=== PATIENT | male | born 1970 | race Caucasian/White ===

== ENCOUNTER 2016-12-08 16:36 | Inpatient (IN) | payer BC ==
[2016-12-08] MEDS ORDERED: NS 0.9% 1000 ML* 1,000 ML IV ONE (16:45)
[2016-12-08] MEDS ORDERED: Morphine INJ* 4 MG/ML 1 ML SYRINGE IV ONE (16:45)
[2016-12-08] MEDS ORDERED: Ondansetron INJ* 2 MG/ML VIAL IV ONE (16:45)
[2016-12-08 16:50] LABS: Hematocrit 47 % (42-52); Mean Corpuscular HGB Conc 34 g/dl (31-36); Mean Corpuscular Hemoglobin 30 pg (27-31); Mean Corpuscular Volume 88 fL (80-94); Mean Platelet Volume 8 um3 (7.4-10.4); Red Blood Count 5.36 10^6/ul (4.0-5.4); Red Cell Distribution Width 13 % (10.5-15); White Blood Count 10.5 10^3/ul (3.5-10.8)
[2016-12-08] MEDS ORDERED: HYDROmorphone* 1 MG/ML 1 ML SYR IV SLOW PU ONE ×2 (17:04→17:45)
[2016-12-08 17:06] LABS: Albumin 4.6 g/dL (3.2-5.2); BUN/Creatinine Ratio 14.3 (8-20); Calcium 9.8 mg/dL (8.6-10.3); EGFR African American 62.6 (>60); EGFR Non-African American 48.7 (>60); Potassium 4.4 mmol/L (3.5-5.0); Total Bilirubin 0.7 mg/dL (0.2-1.0); Total Protein 7.6 g/dL (6.4-8.9)
[2016-12-08 17:08] LABS: Troponin I 0.03 ng/mL (<0.04)
[2016-12-08] MEDS ORDERED: Iodixanol* (CONTRAST) 320 MG/ML 100 ML SDV IV ONE (17:20)
--- NOTE | 2016-12-08 17:25 | RAD ---
Indication: Chest pain. Single frontal view of the chest performed at 1650 hours was reviewed. No prior study.. No mediastinal shift is noted. Heart is of normal size and configuration. Lung womack appear clear. IMPRESSION: NO ACTIVE CARDIOPULMONARY DISEASE IS NOTED.
[2016-12-08] MEDS ORDERED: LORazepam INJ* 2 MG/ML 1 ML VIAL IV PUSH ONE (17:46)
--- NOTE | 2016-12-08 18:01 | RAD ---
Indication: Severe back pain and chest pain. Contrast: Administered 100.0 ml of VISAPAQUE 320 mg/ml CTA of the chest, abdomen and pelvis was performed after IV contrast administration. Coronal and sagittal reconstructed images were obtained. The aorta is well opacified. There is no evidence of aortic dissection. No evidence of aneurysmal dilatation is noted. The heart demonstrates no pericardial effusion. The pulmonary arterial tree demonstrates no evidence of definite filling defects present. There is no mediastinal or hilar adenopathy noted. The brachial and major bronchi appear patent. The lung womack demonstrate dependent changes however no alveolar consolidation or nodules are identified. The thoracic spine demonstrates no evidence of fracture. The remainder of the bony structures are also unremarkable. CTA of the abdomen and pelvis demonstrates abdominal aorta to be normal caliber. The abdominal aorta, celiac axis, superior mesenteric artery are unremarkable. The common iliac artery, external iliac artery and common femoral arteries are unremarkable. The urinary bladder is unremarkable. No dilated loops of bowel are noted. The colon is filled with stool. The appendix is visualized and is normal. No dilated loops of bowel are noted. No free fluid is identified. IMPRESSION: No evidence of aortic dissection or aneurysmal dilatation of the thoracic or abdominal aorta. No solid organ injury is noted. No evidence of pneumonia is identified
[2016-12-08] MEDS ORDERED: Heparin for STEMI(*) 5,000 UNITS/ML 1 ML VIAL IV ONE (18:16)
[2016-12-08] MEDS ORDERED: Heparin DRIP 25,000 UNITS(*) 25,000 UNITS/500 ML BAG IV SCH (18:45)
[2016-12-08] MEDS ORDERED: Diazepam TAB(*) 5 MG PO ONE (18:50)
[2016-12-08] MEDS ORDERED: diPHENhydraMINE PO* 25 MG PO ONE (18:50)
[2016-12-08] MEDS ORDERED: Heparin DRIP 25,000 UNITS(*) 25,000 UNITS/500 ML BAG ONE (18:51)
--- NOTE | 2016-12-08 18:55 | ED ---
Coleen Almeida Rebecca, scribed for Deysi Coffey MD on 12/08/16 at 1654 . HPI Chest Pain - HPI Summary HPI Summary: Pt is a 46 y/o M BIBA who presents to ED c/o sudden onset CP. Sx began at 1530 after a bicycle ride, beginning in the mid-back and radiating forward. Pain has been constant since onset and is currently severe, ranked 9/10. He was given 325 mg ASA and 2 NTG SECURITY SYSTEMS ADMINISTRATOR by EMS. Sx aggravated by nothing, alleviated slightly by NTG. Additionally c/o diaphoresis possibly secondary to bike ride. PMHx DC with 2 stents, 9 years ago - current pain is similar to when he had has DC. Last saw a digital imaging technician and had a stress test 2 years ago. Is not on blood thinners. - History of Current Complaint Chief Complaint: EDChestPainROMI Hx Obtained From: Patient Onset/Duration: Started Hours Ago, Still Present Time of Onset: 15:30 Timing: Constant Current Severity: Severe Pain Intensity: 9 Pain Scale Used: 0-10 Numeric Chest Pain Location: Mid Sternal Chest Pain Radiates: Yes Chest Pain Radiates To:: Back Aggravating Factor(s): Nothing Alleviating Factor(s): NTG 123 Associated Signs and Symptoms: Positive: Diaphoresis - Allergy/Home Medications Allergies/Adverse Reactions: Allergies Allergy/AdvReac Type Severity Reaction Status Date / Time No Known Allergies Allergy Verified 12/08/16 16:53 PMH/Surg Hx/FS Hx/Imm Hx Endocrine/Hematology History: Denies: Hx Diabetes Cardiovascular History: Reports: Hx Myocardial Infarction Denies: Hx Hypertension - Surgical History Surgery Procedure, Year, and Place: 2 cardiac stents - [place] 2007 Infectious Disease History: No Infectious Disease History: Denies: Traveled Outside the [place] in Last 30 Days - Family History Known Family History: Positive: Cardiac Disease - Social History Alcohol Use: Occasionally Substance Use Type: Reports: None Smoking Status (MU): Never Smoked Tobacco Review of Systems Positive: Skin Diaphoresis. Negative: Fever Positive: Chest Pain All Other Systems Reviewed And Are Negative: Yes Physical Exam - Summary Physical Exam Summary: General: Mildly ill appearing in moderate distress Skin: Warm, Skin Color Reflects Adequate Perfusion, diaphoretic Eyes: EOMI, CLARA ENT: Pharynx normal, TMs normal Neck: Supple, nontender Respiratory: CTA, breath sounds present, no rhonchi, no wheezes, no rales Cardiovascular: RRR, no murmur, no rub, no gallop Abdomen: Soft, nontender, Non-distended, no guarding, no rebound Bowel: Present Musculoskeletal: VANESA, No edema Neuro: Sensory/motor intact, A&Ox3, CN intact 2-12 Psych: Affect/mood appropriate Triage Information Reviewed: Yes Vital Signs On Initial Exam: Initial Vitals Temp Pulse Resp BP Pulse Ox 97.2 F 65 22 128/88 98 12/08/16 16:41 12/08/16 16:41 12/08/16 16:41 12/08/16 16:41 12/08/16 16:41 Vital Signs Reviewed: Yes - [place] Coma Scale Coma Scale Total: 15 Diagnostics - Vital Signs Vital Signs Temp Pulse Resp BP Pulse Ox 12/08/16 16:41 97.2 F 66 22 128/88 98 - Laboratory Lab Results: Lab Results 12/08/16 12/08/16 12/08/16 Range/Units 16:43 16:43 16:43 WBC 10.5 (3.5-10.8) 10^3/ul RBC 5.36 (4.0-5.4) 10^6/ul Hgb 16.0 (14.0-18.0) g/dl Hct 47 (42-52) % MCV 88 (80-94) fL MCH 30 (27-31) pg MCHC 34 (31-36) g/dl RDW 13 (10.5-15) % Plt Count 223 (150-450) 10^3/ul MPV 8 (7.4-10.4) um3 Neut % (Auto) 72.8 (38-83) % Lymph % (Auto) 17.6 L (25-47) % Wake % (Auto) 7.0 (1-9) % Eos % (Auto) 0.5 (0-6) % Baso % (Auto) 2.1 H (0-2) % Absolute Neuts (auto) 7.7 (1.5-7.7) 10^3/ul Absolute Lymphs (auto) 1.9 (1.0-4.8) 10^3/ul Absolute Monos (auto) 0.7 (0-0.8) 10^3/ul Absolute Eos (auto) 0.1 (0-0.6) 10^3/ul Absolute Basos (auto) 0.2 (0-0.2) 10^3/ul Absolute Nucleated RBC 0 10^3/ul Nucleated RBC % 0 Sodium 136 (133-145) mmol/L Potassium 4.4 (3.5-5.0) mmol/L Chloride 104 (101-111) mmol/L Carbon Dioxide 23 (22-32) mmol/L Anion Gap 9 (2-11) mmol/L BUN 22 (6-24) mg/dL Creatinine 1.54 H (0.67-1.17) mg/dL Est GFR ( Amer) 62.6 (>60) Est GFR (Non-Af Amer) 48.7 (>60) BUN/Creatinine Ratio 14.3 (8-20) Glucose 167 H (70-100) mg/dL Lactic Acid 1.8 (0.5-2.0) mmol/L Calcium 9.8 (8.6-10.3) mg/dL Total Bilirubin 0.70 (0.2-1.0) mg/dL AST 18 (13-39) U/L ALT 20 (7-52) U/L Alkaline Phosphatase 57 (34-104) U/L Troponin I 0.03 (<0.04) ng/mL Total Protein 7.6 (6.4-8.9) g/dL Albumin 4.6 (3.2-5.2) g/dL Globulin 3.0 (2-4) g/dL Albumin/Globulin Ratio 1.5 (1-3) Result Diagrams: 12/08/16 16:43 12/08/16 16:43 Lab Statement: Any lab studies that have been ordered have been reviewed, and results considered in the medical decision making process. - Radiology CXR Xray Interpretation: No Acute Changes - NO ACTIVE CARDIOPULMONARY DISEASE IS NOTED. Radiology Interpretation Completed By: Radiologist - CT CTA Chest/Abd/Pel CT CT Interpretation: No Acute Changes - No evidence of aortic dissection or aneurysmal dilatation of the thoracic or abdominal aorta. No solid organ injury is noted. No evidence of pneumonia is identified CT Interpretation Completed By: Radiologist - EKG 1640 Cardiac Rate: NL - 61 bpm EKG Rhythm: Sinus Rhythm EKG Interpretation: Inferior Q waves with T wave inversions, peaked T waves 1643 Cardiac Rate: NL - 63 bpm EKG Rhythm: Sinus Rhythm EKG Interpretation: Inferior Q waves with T wave inversions, peaked T waves EKG Comparison: No Significant Change - From EKG on this date at 1640 1803 Cardiac Rate: NL - 60 bpm EKG Rhythm: Sinus Rhythm EKG Comparison: Other - Lead I and aVL have changed in morphology to show slight elevation as compared with EKGs done earlier today Re-Evaluation - Re-Evaluation First Eval Re-Evaluation Time: 16:56 Change: Unchanged Comment: Pt continues to be in pain. Second Eval Re-Evaluation Time: 18:13 Change: Improved Comment: After pain medications, pt is more comfortable but continues to experience pain, currently 11/05. I have decided to start him on a Heparin drip. Chest Pain Course/Dx - Course Course Of Treatment: 46 yo male hx DC two stents 10 years ago not on meds now and denies htn, fam hx, or chol, here with onset of severe back pain radiating to chest. First ekg non-diagnostic with inf q's and deep twave inversions. Pain was hard to control with 4mg of morphine, 1mg of dilaudid and 0.5 mg ativan. He did receive asa and nitro by ambulance, pt was sent for a cta chest/abd/pelvis to rule out dissection with on going chest pain at a 6 but definitely more comfortable then he arrived. First trop was 0.3 and 2nd ekg showed a slight change in morphology of leads 1 and aVL questionable mild elevation. Dr. Hernandez called 4000 units of heparin loaded, pt now receiving infusion of heparin and Dr. Hernandez has called in cath team to take pt to the general labor forklift operator. Pt's here for the course of his treatment and has been made aware of all treatments - Diagnoses Provider Diagnoses: Unstable angina - Provider Notifications Discussed Care Of Patient With: Santi Hernandez Time Discussed With Above Provider: 18:16 Instructed by Provider To: Other - Now that the pt's CTA has been read as negative, he will evaluate the pt in the ED and posibly take him to the general labor forklift operator. - Critical Care Time Critical Care Time: 30-74 min - 30 minutes Discharge - Discharge Plan Condition: Guarded Disposition: ADMITTED TO [facility] documentation as recorded by the Coleen joseph Rebecca accurately reflects the service I personally performed and the decisions made by me, Deysi Coffey MD.
[2016-12-08] MEDS ORDERED: Heparin VIAL(*) 5000 UNITS/ML VIAL (FIVE THOUSAND) IV SCH (19:00)
[2016-12-08] MEDS ORDERED: NS 0.9% 1000 ML* 1,000 ML IV SCH ×2 (19:00→23:00)
[2016-12-08] MEDS ORDERED: Iodixanol* (CONTRAST) 320 MG/ML 100 ML SDV ONE ×2 (19:09→21:34)
[2016-12-08] MEDS ORDERED: VERAPAMIL 2.5 MG/ML 4 ML VIAL ONE (19:30)
[2016-12-08] MEDS ORDERED: nitroGLYCERIN DRIP* 250 ML ONE (19:30)
[2016-12-08] MEDS ORDERED: Heparin(*) 1000 UNIT/ML 10 ML VIAL CATH LAB IV ONE ×2 (19:30→21:32)
[2016-12-08] MEDS ORDERED: Eptifibatide IV (Load dose)(*) 2 MG/ML 10 ml VIAL ONE (20:07)
[2016-12-08] MEDS ORDERED: Ticagrelor* 90 MG TAB PO ONE (20:10)
--- NOTE | 2016-12-08 21:21 | HP ---
HISTORY AND PHYSICAL: DATE OF ADMISSION: 12/08/16 INDICATION FOR ADMISSION: Acute coronary syndrome. HISTORY OF PRESENT ILLNESS: The patient is a 46-year-old gentleman with a history of coronary arter y disease, history of stenting to his PDA back in 2007. The patient does not follow with the physic darren or marine meteorologist. The patient states that he went out for a bike ride today, felt well during hi s bike ride, but then when he got home, he started having anginal-type chest pain, radiating from th e back to the front. He rated it as a 7/10. He was diaphoretic and nauseous with it. His pain did not radiate anywhere. He called the ambulance. On arrival of the ambulance, they gave him 3 subli ngual nitroglycerin and 325 aspirin. The nitroglycerin did decrease his pain, but did not completel y eliminate it. In the emergency room, the patient had an EKG which demonstrated normal sinus rhyth m with deep T-wave inversions in the inferior leads with ST-segment depressions in V2, V3; ST-segmen t elevations in I and aVL. The patient was given heparin IV, morphine IV, and anxiolytic. Despite that, the patient continued to have chest pain. The patient did go for a CT of the chest to rule ou t dissection. There was no evidence of dissection. On my arrival, the patient continued to be diap horetic, had 3/10 chest pain radiating from the back to the front, and was slightly nauseous. PAST MEDICAL HISTORY: Nothing except for the coronary artery disease. PAST SURGICAL HISTORY: None except for cardiac catheterization. MEDICATIONS: He is currently not taking any medications. ALLERGIES: None. FAMILY HISTORY: Father had a history of early coronary artery disease. Mother has no ongoing medic al problems. REVIEW OF SYSTEMS: Negative for fevers or chills. Negative for change in the bowel or bladder habi ts. Negative for change for weight. All other 12-point review was unremarkable. PHYSICAL EXAMINATION VITAL SIGNS: Height is 5 feet 11 inches, weight 215 pounds. Temperature 97.2, heart rate is 66, bl ood pressure 128/88, oxygen saturation 98% on 2 L. HEENT: Sclerae anicteric. Oropharynx is pink without erythema. NECK: Carotids are 2+ without bruits. JVD is normal. Thyroid is normal. LUNGS: Clear to auscultation bilaterally. There is no dullness to percussion. CARDIAC: S1, S2 without any murmurs, rubs, or gallops. ABDOMEN: Soft, nontender, nondistended with normoactive bowel sounds. EXTREMITIES: Show no edema. He has 2+ pulses throughout. The patient is awake and alert and orien jada. He moves all 4 extremities equally. DIAGNOSTIC STUDIES/LAB DATA: CBC within normal limits. Chemistry is within normal limits. BUN 22 , creatinine 1.5. AST and ALT are within normal limits. Troponin 0.03. EKG is as described above. IMPRESSION AND PLAN: This is a 46-year-old gentleman with a history of coronary artery disease, who came into the emergency room with typical anginal-type symptoms. The patient's EKG is suggestive o f an evolving acute coronary syndrome. The patient's CTA of the chest ruled out dissection. The patient has already gotten heparin, aspirin, morphine, and nitroglycerin. The patient will be taken to the cardiac senior cytogenetics laboratory director for diagnostic cardiac catheterization and possibl e intervention if necessary. The risks and benefits were described in great detail with the patient . He is willing to proceed. [id number] #: [id number]
[2016-12-08] MEDS ORDERED: fentaNYL* 50 MCG/ML 2 ML VIAL (100 MCG VIAL) ONE (21:32)
[2016-12-08] MEDS ORDERED: Eptifibatide (*) 100 ML ONE (22:08)
[2016-12-08] MEDS ORDERED: Acetaminophen TAB* 325 MG PO PRN (23:04)
[2016-12-08] MEDS: Metoprolol Tartrate TAB* 25 MG PO SCH (23:40)
[2016-12-08] MEDS: Zolpidem TAB* 5 MG PO PRN (23:40)
[2016-12-08] MEDS: oxyCODONE/Acetamin 5/325 MG* TAB PO PRN (23:40)
[2016-12-08] MEDS ORDERED: Eptifibatide (*) 100 ML IV SCH (23:45)
[2016-12-09 00:58] LABS: Troponin I 22.99 ng/mL (<0.04)
[2016-12-09] MEDS: Zolpidem TAB* 5 MG PO PRN (02:12)
[2016-12-09] MEDS: oxyCODONE/Acetamin 5/325 MG* TAB PO PRN (03:38)
[2016-12-09 05:05] LABS: Troponin I 22.67 ng/mL (<0.04)
[2016-12-09 06:45] LABS: Calcium 8.6 mg/dL (8.6-10.3); EGFR African American 95.3 (>60); EGFR Non-African American 74.1 (>60); HDL Cholesterol 44.4 mg/dL; Potassium 4.3 mmol/L (3.5-5.0)
[2016-12-09] MEDS: Metoprolol Tartrate TAB* 25 MG PO SCH ×2 (07:39→14:32)
[2016-12-09] MEDS: Nitroglycerin TAB 0.4 MG* 0.4 MG TAB SL PRN (08:36)
[2016-12-09] MEDS: Ticagrelor* 90 MG TAB PO SCH ×2 (08:58→21:08)
[2016-12-09] MEDS: Aspirin Low Dose CHEW TAB* 81 MG PO SCH (08:58)
[2016-12-09] MEDS: Captopril TAB* 12.5 MG PO SCH ×3 (08:58→21:08)
[2016-12-09] MEDS: HYDROmorphone* 1 MG/ML 1 ML SYR IV SLOW PU PRN ×2 (09:14→21:13)
--- NOTE | 2016-12-09 09:34 | ECHO ---
Patient: SHALA LAUREN [facility] Rec#: [id number] : 1970 Date: 12/09/2016 Age: 46y Height: 180.3 cm / 71.0 in Weight: 97.5 kg / 214.9 lbs Sex: M BSA: 2.2 Room#: ICU 9 Admit Date#: 12/08/2016 Type: Inpatient Referring: Mary Carolina MD Reading: Santi Hernandez MD Public Health Inspector: Julia Fuentes RN RDCS Transthoracic Echocardiogram Indication: ACS, S/P PCI BP: 123/81 HR: 63 Rhythm: NSR Findings History: CAD with stent placement in 2007 Technical Comments: The study is technically limited due to patient body habitus. Completed at 0850. Left Ventricle: The left ventricular chamber size is mildly dilated. Mild concentric left ventricular hypertrophy is observed. There are multiple regional wall motion abnormalities. There is moderate to severely decreased left ventricular systolic function. The estimated ejection fraction is 25-30%. There is no consistent Doppler evidence of clinically significant diastolic dysfunction. The basal inferior, and mid inferior wall segments are hypokinetic (score 2). The mid anterolateral, and apical lateral wall segments are akinetic (score 3). Overall wallmotion score index is 2.50 Left Atrium: The left atrial chamber size is normal. Right Ventricle: The right ventricular cavity size is normal. The right ventricular global systolic function is mildly reduced. Right Atrium: The right atrial cavity size is normal. Aortic Valve: The aortic valve is trileaflet. The aortic valve leaflets are mildly thickened. There is mild aortic regurgitation. There is no evidence of aortic stenosis. Mitral Valve: The mitral valve leaflets are mildly thickened. There is trace to mild mitral regurgitation. There is no evidence of mitral stenosis. Tricuspid Valve: The tricuspid valve leaflets are normal. There is trace tricuspid regurgitation. Unable to estimate the right ventricular systolic pressure. Pulmonic Valve: The pulmonic valve appears normal. There is mild pulmonic regurgitation. There is no pulmonic stenosis. Pericardium: There is no significant pericardial effusion. A pericardial fat pad is visualized. Aorta: There is mild dilatation of the ascending aorta. There is no dilatation of the aortic arch. There is mild dilatation of the aortic root. Pulmonary Artery: The main pulmonary artery is not well visualized. Venous: The inferior vena cava is dilated. There is no change in the dimension of the inferior vena cava with respiration consistent with markedly increased right atrial pressure. Summary: There was not any prior study for comparison. Conclusions Mild concentric left ventricular hypertrophy is observed. There is moderate to severely decreased left ventricular systolic function. The estimated ejection fraction is 25-30%. There are multiple regional wall motion abnormalities. The right ventricular global systolic function is mildly reduced. There is mild aortic regurgitation. There is trace to mild mitral regurgitation. There is trace tricuspid regurgitation. Unable to estimate the right ventricular systolic pressure. There is no significant pericardial effusion. Measurements Name Value Normal Range RVDdMajor (2D) 3 cm (2.2 - 4.4) RAd ISD 4CH 4.4 cm (3.4 - 4.9) RA (A4C)W 3.3 cm (2.9 - 4.6) IVSd (2D) 1.1 cm (0.6 - 1) LVPWd (2D) 1.1 cm (0.6 - 1) LVIDd (2D) 5.5 cm (3.6 - 5.4) LVIDs (2D) 4.5 cm - LV FS (2D) 18 % (25 - 45) Aortic Annulus 2.3 cm (1.4 - 2.6) Ao root diameter (2D) 3.8 cm (2.1 - 3.5) Ascending Ao 3.6 cm (2.1 - 3.4) Aortic arch 2.5 cm (1.8 - 3.4) LA dimension (AP) 2D 3.2 cm (2.3 - 3.8) LAd ISD 4CH 4.9 cm (2.9 - 5.3) LA ISD 4CH W 3.4 cm (2.5 - 4.5) Name Value Normal Range LA ESV SP 4CH (A/L) 40 ml - LA ESV SP 2CH (A/L) 59 ml - LA ESV BP (A/L) 49 ml - LA ESV BP (A/L) index 23 ml/m2 - LA ESV SP 4CH (MOD) 37 ml - LA ESV SP 2CH (MOD) 53 ml - Name Value Normal Range MV E-wave Vmax 0.76 m/sec - MV deceleration time 200 msec - MV A-wave Vmax 0.69 m/sec - MV E:A ratio 1.1 ratio - LV septal e' Vmax 0.06 m/sec - LV lateral e' Vmax 0.09 m/sec - LV E:e' septal ratio 12.7 ratio - LV E:e' lateral ratio 8.4 ratio - Name Value Normal Range AV Vmax 1 m/sec - AV VTI 24.2 cm - AV peak gradient 4.1 mmHg - AV mean gradient 2.8 mmHg - LVOT Vmax 0.83 m/sec - LVOT VTI 18.8 cm - LVOT peak gradient 2.7 mmHg - LVOT mean gradient 1.5 mmHg - AR PHT 661 msec - ANGI Vmax 0.7 m/sec - Name Value Normal Range IVC diameter 2.2 cm - Name Value Normal Range PV Vmax 0.63 m/sec - Wallmotion BAS Not Seen BA Not Seen BAL Not Seen JULIET Not Seen BI Hypokinetic BIS Not Seen MAS Not Seen MA Not Seen MAL Akinetic MIL Not Seen NC Hypokinetic MIS Not Seen Not Seen AA Not Seen AL Akinetic AI Not Seen APEX Akinetic
[2016-12-09 10:22] LABS: C Reactive Protein 4.25 mg/L (< 5.00)
[2016-12-09] MEDS: Ondansetron INJ* 2 MG/ML VIAL IV PRN (10:57)
[2016-12-09] MEDS ORDERED: nitroGLYCERIN DRIP* 25,000 MCG in PREMIX* 0 ML IV SCH (11:00)
[2016-12-09 11:33] LABS: Troponin I 19.23 ng/mL (<0.04)
--- NOTE | 2016-12-09 15:07 | CATH ---
CC: Dr. Hernandez * STENT REPORT: DATE OF PROCEDURE: 12/08/16 - ROOM #ICU-09 DIRECTOR DESIGN: Dr. Hernandez. PROCEDURES: Right radial artery access; bilateral selective coronary angiography; left heart catheterization; stent placement to LAD 3.5 x 16 Synergy drug-eluting stent; stent placement to diagonal 3.5 x 16 Synergy drug- eluting stent, with proximal overlapping 3.5 x 12 Synergy drug-eluting stent; kissing balloon inflation. HISTORY: A 46-year-old male with history of 2 stents placed in the RCA when he was in his 30s. He completed a dual-antiplatelet therapy, subsequently elected to pursue nontraditional therapies for general wellness as well as his coronary artery disease. More recently, he has been pursuing no therapy. He is on no medications. He presented to the ER with a non-ST elevation infarct with ongoing chest pain. He was seen by Dr. Hernandez in consultation, was brought to the ballistics laboratory gunsmith for continuing chest pain in the setting of a non-ST elevation infarct. Because of his presenting GFR of 48.7, a 5 cc syringe was used to inject all the coronary angiograms resulting in some images being underfilled. This was done to minimize contrast load. This was a complex lengthy procedure because of a complex bifurcation lesion with procedure time of 2 hours and 24 minutes. Complexity because of need for bifurcation stenting, kissing balloon inflation, and great difficulty negotiating the very angulated diagonal origin. ACCESS: Right radial artery sheath 6F slender. MEDICATIONS: 1. Subcu lidocaine. 2. IV Versed. 3. IV fentanyl. 4. Verapamil 3 mg. 5. Nitroglycerin 300 mcg IA. 6. Heparin 4000 units, 2000 units, 3000 units, 3000 units IV. 7. Double bolus IC Integrilin and subsequent IV infusion. 8. Brilinta 180 mg p.o. loading dose. DIAGNOSTIC CATHETERS: 5-F TIG4, 5-FL 3.5. VL 3.5 was used for left heart hemodynamics. LV gram was not performed because of reduced creatinine clearance. DESCRIPTION OF PROCEDURE: After diagnostic angiography, the LAD diagonal bifurcation was approached. Double bolus IC Integrilin was given. A 6-F VL 3.5 guide was used, two 14 BMW wires were used, one was positioned in the LAD, the second would not negotiate the steep angle into the diagonal origin. The wire was reshaped numerous times. A Pronto catheter was introduced for aspiration thrombectomy of the LAD in the hope of improving the access into the diagonal. There remained a very unfavorable angulation. A 90-degree SuperCross microcatheter was then introduced over BMW wire in the LAD, and pulled back until it pointed at the diagonal ostium after which it was wired with the second BMW wire. A 3.5 x 12 Synergy drug-eluting stent was then advanced but was too short, was exchanged for a 3.5 x 16 Synergy drug-eluting stent. Just prior to this, guiding catheter was advanced for better engagement resulting in prolapse of the entire system and need to rewire the LAD and the diagonal. The 3.5 x 16 mm stent was deployed in the LAD at 11 atmospheres for 13 seconds. A 14 PT Graphix wire was then advanced, crossed through the side of the LAD stent into the diagonal adjacent to the diagonal wire. A 3.5 x 15 mm balloon was advanced over the PT Graphix wire after the BMW wire was pulled from the diagonal. It was inflated at 6 atmospheres for 15 seconds, 6 for 30, 6 for 30, 10 for 30, 10 for 30 with an inadequate result. A 3.5 x 16 mm Synergy drug-eluting stent was then advanced over the diagonal wire and deployed at 11 atmospheres for 20 seconds. Deployment resulted in watermelon seeding of the stent distally into the diagonal leaving the proximal end uncovered. Therefore, a 3.5 x 12 Synergy drug -eluting stent was advanced into the diagonal and deployed overlapping the proximal end of the first diagonal stent, and deployed at 11 atmospheres for 12 seconds. I attempted to advance the diagonal wire into the more superior occluded side branch, but it was impossible because the steep angle in the wire required to access the diagonal precluded distal advancement. Kissing balloon inflations were then performed in the diagonal and LAD stent using 3.5 mm x 12 balloon in the diagonal, 3.5 x 15 in the LAD with inflation to 12 atmospheres in each simultaneously for 30 seconds. IV Integrilin was instituted. Right radial hemostasis was achieved with the band. HEMODYNAMICS: Initial BP 146/102, LV 118/22, no aortic valve gradient on pullback. Final BP 142/103. ANGIOGRAPHY: RCA: The RCA is large, dominant, with a large conus branch. There is some mild irregularity at the acute margin but no significant stenosis. There are 2 previously placed stents apparently side by side near the crux. There is no vessel stenosis of significance, the PDA origin has at most of 30% stenosis. Left Main: The left main is large, has no stenosis. LAD: The LAD is very large, has an eccentric lucent plaque at the first septal char puller with subsequent reverse tapering, there is a large diagonal branch arising just beyond the LAD stenosis, the diagonal has lucency and up to 80% stenosis at its origin. More distally the diagonal bifurcates, the more superior branch has a tubular 75% to 80% stenosis, the lower branch has no significant stenosis. The LAD and diagonal have AZRA-2 flow. The nature of the LAD plaque is such that accessing the diagonal requires about a 70-degree angle, which was accomplished with a 90-degree angled microcatheter. Circumflex: The circumflex is large with a large first marginal, large second marginal, the circumflex has no significant stenosis. After repeated angioplasty of the diagonal origin, result was unsatisfactory, required stenting. After diagonal stent deployment almost in a kissing fashion, and kissing balloon inflation, the LAD has no residual stenosis, the diagonal has no residual stenosis at the origin. The lower side branch is patent, the upper side branch is occluded a centimeter from the origin, could not be wired and was not treated. CONCLUSION: 1. Complex LAD diagonal bifurcation lesion with non-ST elevation infarct presentation. Excellent angiographic result with bifurcation, drug-eluting stent placement followed by kissing balloon inflation. 2. Occluded upper side branch of the diagonal could not be revascularized due to inability to reach with a wire. 3. Normal left-sided hemodynamics aside from hypertension and elevated LVEDP. 4. Successful right radial artery access. [id number]/[facility] #: [id number] NETTA
[2016-12-09] MEDS: Atorvastatin* 80 MG TAB PO SCH (17:15)
[2016-12-10] MEDS: Metoprolol Tartrate TAB* 25 MG PO SCH ×4 (00:38→23:02)
[2016-12-10] MEDS: Zolpidem TAB* 5 MG PO PRN (00:44)
[2016-12-10] MEDS: oxyCODONE/Acetamin 5/325 MG* TAB PO PRN (02:24)
[2016-12-10] MEDS: HYDROmorphone* 1 MG/ML 1 ML SYR IV SLOW PU PRN ×3 (04:04→19:43)
[2016-12-10 06:22] LABS: BUN/Creatinine Ratio 11.4 (8-20); Calcium 8.8 mg/dL (8.6-10.3); EGFR African American 119.4 (>60); EGFR Non-African American 92.8 (>60); Potassium 3.7 mmol/L (3.5-5.0)
[2016-12-10] MEDS: Captopril TAB* 12.5 MG PO SCH ×3 (09:22→21:16)
[2016-12-10] MEDS: Ticagrelor* 90 MG TAB PO SCH (09:22)
[2016-12-10] MEDS: Aspirin Low Dose CHEW TAB* 81 MG PO SCH (09:22)
[2016-12-10] MEDS ORDERED: Captopril TAB* 12.5 MG ONE (10:52)
[2016-12-10] MEDS: Nitroglycerin TAB 0.4 MG* 0.4 MG TAB SL PRN ×4 (12:37→16:00)
[2016-12-10] MEDS ORDERED: HYDROmorphone* 1 MG/ML 1 ML SYR ONE (12:52)
[2016-12-10] MEDS: Ondansetron INJ* 2 MG/ML VIAL IV PRN (12:55)
[2016-12-10 13:25] LABS: Hematocrit 46 % (42-52); Hemoglobin 15.4 g/dl (14.0-18.0); Mean Corpuscular HGB Conc 34 g/dl (31-36); Mean Corpuscular Hemoglobin 30 pg (27-31); Mean Corpuscular Volume 87 fL (80-94); Mean Platelet Volume 8 um3 (7.4-10.4); Red Blood Count 5.23 10^6/ul (4.0-5.4); Red Cell Distribution Width 13 % (10.5-15); White Blood Count 14.7 10^3/ul (3.5-10.8)
[2016-12-10 13:30] LABS: Troponin I 17.58 ng/mL (<0.04)
[2016-12-10] MEDS ORDERED: Prasugrel (NF) 10 MG PO ONE (13:46)
--- NOTE | 2016-12-10 14:30 | ECHO ---
Patient: SHALA LAUREN [facility] Rec#: [id number] : 1970 Date: 12/10/2016 Age: 46y Height: 180.3 cm / 71.0 in Weight: 97.5 kg / 214.9 lbs Sex: M BSA: 2.2 Room#: ICU 9 Admit Date#: 12/09/2016 Type: Inpatient Referring: Art Alvarenga MD Reading: Art Alvarenga MD Councilman: Julia Fuentes RN RDCS CC: Santi Hernandez MD Transthoracic Echocardiogram Indication: Pleuritic chest pain post CA BP: 124/83 HR: 85 Rhythm: NSR Findings History: CAD with stent placement in 2007, NSTEMI with PCI on 12/08/2016. This is a LIMITED study to assess for pericardial effusion, changes to valve function, and right-sided chamber sizes. Technical Comments: The study quality is fair. Completed at 1415. The study is technically limited due to patient body habitus. Left Ventricle: There are multiple regional wall motion abnormalities. The mid anterolateral wall shows the worse motion (akinetic) extending to the anterolateral apical region. There is moderate to severely decreased left ventricular systolic function. The estimated ejection fraction is 25-30%. Visually estaimted LVEF is 30 %. Right Ventricle: The right ventricular cavity size is normal. The right ventricular global systolic function is low normal. Right Atrium: The right atrial cavity size is normal. Aortic Valve: The aortic valve is trileaflet. The aortic valve leaflets are mildly thickened. There is mild aortic regurgitation. Mitral Valve: The mitral valve leaflets are mildly thickened. There is trace to mild mitral regurgitation. Tricuspid Valve: The tricuspid valve leaflets are normal. There is trace to mild tricuspid regurgitation. Unable to estimate the right ventricular systolic pressure. Pulmonic Valve: The pulmonic valve appears normal. There is mild to moderate pulmonic regurgitation. Pericardium: There is no significant pericardial effusion. A pericardial fat pad is visualized. Conclusions The study is technically limited due to patient body habitus. There are multiple regional wall motion abnormalities. The mid anterolateral wall shows the worse motion (akinetic) extending to the anterolateral apical region. There is moderate to severely decreased left ventricular systolic function. Visually estaimted LVEF is 30 %. There is mild aortic regurgitation. There is trace to mild mitral regurgitation. There is trace to mild tricuspid regurgitation. There is mild to moderate pulmonic regurgitation. There is no significant pericardial effusion. No significant changes are noted compared to report of prior study from yesterday. Measurements Name Value Normal Range RVIDd (AP) 2D 2.6 cm (0.9 - 2.6) RVDdMajor (2D) 3.7 cm (2.2 - 4.4) RAd ISD 4CH 4.1 cm (3.4 - 4.9) RA (A4C)W 3.8 cm (2.9 - 4.6) LAd ISD 4CH 4.2 cm (2.9 - 5.3) LA ISD 4CH W 4 cm (2.5 - 4.5)
[2016-12-10] MEDS ORDERED: Colchicine* 0.6 MG TAB PO ONE (15:00)
[2016-12-10] MEDS: Aspirin TAB* 325 MG PO SCH ×2 (15:11→21:16)
[2016-12-10] MEDS: Atorvastatin* 80 MG TAB PO SCH (17:18)
[2016-12-10] MEDS ORDERED: CMCS Pantoprazole TAB (NF) 40 MG TAB PO ONE (17:20)
[2016-12-10] MEDS: Colchicine* 0.6 MG TAB PO SCH (21:16)
[2016-12-11] MEDS: HYDROmorphone* 1 MG/ML 1 ML SYR IV SLOW PU PRN (00:04)
[2016-12-11] MEDS: oxyCODONE/Acetamin 5/325 MG* TAB PO PRN (02:16)
[2016-12-11] MEDS: Metoprolol Tartrate TAB* 25 MG PO SCH ×3 (07:46→17:40)
[2016-12-11] MEDS: Captopril TAB* 12.5 MG PO SCH ×3 (07:46→21:36)
[2016-12-11] MEDS: Aspirin TAB* 325 MG PO SCH ×3 (07:46→17:35)
[2016-12-11 07:53] LABS: BUN/Creatinine Ratio 15.9 (8-20); Calcium 9.3 mg/dL (8.6-10.3); EGFR African American 95.3 (>60); EGFR Non-African American 74.1 (>60); Potassium 3.7 mmol/L (3.5-5.0)
[2016-12-11] MEDS: CMCS:Prasugrel (NF) 10 MG PO SCH (09:00)
[2016-12-11] MEDS: Colchicine* 0.6 MG TAB PO SCH ×2 (09:01→15:51)
[2016-12-11] MEDS: CMCS Pantoprazole TAB (NF) 40 MG TAB PO SCH (09:01)
[2016-12-11] MEDS ORDERED: Potassium Chlor TAB* 10 MEQ TAB.ER PO ONE (09:21)
[2016-12-11] MEDS ORDERED: Metoprolol Tartrate TAB* 25 MG ONE (09:42)
[2016-12-11 09:56] LABS: Magnesium 2.2 mg/dL (1.9-2.7)
[2016-12-11 10:03] LABS: Troponin I 14.37 ng/mL (<0.04)
[2016-12-11 15:12] LABS: Hematocrit 44 % (42-52); Hemoglobin 14.8 g/dl (14.0-18.0); Mean Corpuscular HGB Conc 34 g/dl (31-36); Mean Corpuscular Hemoglobin 30 pg (27-31); Mean Corpuscular Volume 88 fL (80-94); Mean Platelet Volume 9 um3 (7.4-10.4); Red Blood Count 4.98 10^6/ul (4.0-5.4); Red Cell Distribution Width 13 % (10.5-15); White Blood Count 13.6 10^3/ul (3.5-10.8)
[2016-12-11] MEDS: Atorvastatin* 80 MG TAB PO SCH (17:35)
[2016-12-12] MEDS: Metoprolol Tartrate TAB* 25 MG PO SCH ×3 (01:44→16:27)
[2016-12-12 05:34] LABS: Hematocrit 43 % (42-52); Hemoglobin 14.6 g/dl (14.0-18.0); Mean Corpuscular HGB Conc 34 g/dl (31-36); Mean Corpuscular Hemoglobin 30 pg (27-31); Mean Corpuscular Volume 88 fL (80-94); Mean Platelet Volume 9 um3 (7.4-10.4); Red Blood Count 4.93 10^6/ul (4.0-5.4); Red Cell Distribution Width 13 % (10.5-15); White Blood Count 11.9 10^3/ul (3.5-10.8)
[2016-12-12 05:35] LABS: Comments Flag Yes
[2016-12-12 05:43] LABS: BUN/Creatinine Ratio 17.5 (8-20); Calcium 9.2 mg/dL (8.6-10.3); EGFR African American 83.5 (>60); EGFR Non-African American 64.9 (>60); Potassium 3.8 mmol/L (3.5-5.0)
[2016-12-12] MEDS: Aspirin TAB* 325 MG PO SCH ×3 (08:10→16:27)
[2016-12-12] MEDS: Captopril TAB* 12.5 MG PO SCH ×3 (08:10→21:45)
[2016-12-12] MEDS: Colchicine* 0.6 MG TAB PO SCH (08:10)
[2016-12-12] MEDS: CMCS:Prasugrel (NF) 10 MG PO SCH (08:10)
[2016-12-12] MEDS: CMCS Pantoprazole TAB (NF) 40 MG TAB PO SCH (08:10)
--- NOTE | 2016-12-12 15:36 | ECHO ---
Patient: SHALA LAUREN [facility] Rec#: [id number] : 1970 Date: 12/12/2016 Age: 46y Height: 180 cm / 70.9 in Weight: 98 kg / 216.0 lbs Sex: M BSA: 2.18 Room#: ICU 5 Admit Date#: 12/08/2016 Type: Inpatient Referring: Art Alvarenga MD Reading: Nika Feng MD Tray Delivery Aide: Bernie FortuneRDCS,RDMS Transthoracic Echocardiogram Indication: Cardiomyopathy BP: 104/79 HR: 88 Rhythm: NSR with PVCs Findings History: LIMITED ECHO. NSTEMI, CAD, PCI Technical Comments: The study quality is good. Completed 1140 Left Ventricle: There is severely decreased left ventricular systolic function.The septum and base of the inferior/lateral wall move best. Severe hypo to akinesis of the apex with wide extention. The estimated ejection fraction is 25-30%. Right Ventricle: The right ventricular cavity size is normal. The right ventricular global systolic function is low normal. Aortic Valve: There is trace to mild aortic regurgitation. Mitral Valve: There is a trace of mitral regurgitation. Tricuspid Valve: There is trace tricuspid regurgitation. Pulmonic Valve: There is a trace pulmonic regurgitation. Pericardium: There is no significant pericardial effusion. Conclusions LIMITED ECHO. NSTEMI, CAD, PCI There is severely decreased left ventricular systolic function.The septum and base of the inferior/lateral wall move best. Severe hypo to akinesis of the apex with wide extention. The estimated ejection fraction is 25-30%. The right ventricular global systolic function is low normal. There is trace to mild aortic regurgitation. There is a trace of mitral regurgitation. There is trace tricuspid regurgitation. Compared with prior echo of 12/10/16, ventricular function has not significantly changed. Valve function not significantly changed.
[2016-12-12] MEDS: Atorvastatin* 80 MG TAB PO SCH (16:27)
[2016-12-13] MEDS: Metoprolol Tartrate TAB* 25 MG PO SCH ×3 (01:30→18:01)
[2016-12-13 07:07] LABS: BUN/Creatinine Ratio 18.4 (8-20); Calcium 9.1 mg/dL (8.6-10.3); EGFR African American 105.4 (>60); Potassium 3.9 mmol/L (3.5-5.0)
[2016-12-13] MEDS: Colchicine* 0.6 MG TAB PO SCH (08:45)
[2016-12-13] MEDS: Aspirin TAB* 325 MG PO SCH ×3 (08:46→18:01)
[2016-12-13] MEDS: Captopril TAB* 12.5 MG PO SCH ×3 (08:46→20:55)
[2016-12-13] MEDS: CMCS:Prasugrel (NF) 10 MG PO SCH (08:46)
[2016-12-13] MEDS: CMCS Pantoprazole TAB (NF) 40 MG TAB PO SCH (08:46)
[2016-12-13] MEDS: Atorvastatin* 80 MG TAB PO SCH (18:01)
[2016-12-14] MEDS: Metoprolol Tartrate TAB* 25 MG PO SCH ×2 (00:40→07:56)
[2016-12-14 06:43] LABS: Calcium 9.3 mg/dL (8.6-10.3); EGFR African American 110.6 (>60); Potassium 3.9 mmol/L (3.5-5.0)
[2016-12-14] MEDS: CMCS Pantoprazole TAB (NF) 40 MG TAB PO SCH (07:55)
[2016-12-14] MEDS: Captopril TAB* 12.5 MG PO SCH ×2 (07:56→14:09)
[2016-12-14] MEDS: CMCS:Prasugrel (NF) 10 MG PO SCH (07:57)
[2016-12-14] MEDS: Colchicine* 0.6 MG TAB PO SCH (07:58)
[2016-12-14] MEDS: Aspirin TAB* 325 MG PO SCH ×2 (08:37→12:43)
[2016-12-14 14:12] VITALS: BP 117/87
--- NOTE | 2016-12-14 20:50 | DS ---
CC: Dr. Hernandez; Dr. Mark * DISCHARGE SUMMARY: DATE OF ADMISSION: 12/08/16 DATE OF DISCHARGE: 12/14/16 DISCHARGE DIAGNOSES: 1. Status post non-ST elevation myocardial infarction. 2. Status post angioplasty and stenting by Dr. Carolina, right radial artery approach for a complex LAD diagonal bifurcation lesion, drug-eluting stent placement followed by kissing balloon inflation. 3. Occluded upper side branch of the diagonal could not be revascularized due to inability to reach with a wire. 4. Cardiomyopathy with an overall left ventricular systolic function by an echocardiogram on 12/12/16 with an EF of 25% to 30%, severe hypokinesis to akinesis of the apex with wide extension. 5. Pericarditis without significant pericardial effusion. 6. Trace to mild aortic insufficiency, trace mitral insufficiency, trace tricuspid insufficiency. PROCEDURES: Cardiac catheterization and angioplasty and stenting as per Dr. Carolina. Cardiac cath, angioplasty report on 12/08/16. DISCHARGE MEDICATIONS: 1. Aspirin 325 mg 3 times a day. 2. Lipitor 80 mg p.o. q.h.s. 3. Capoten 6.25 mg t.i.d. 4. Colchicine 0.6 mg 1 p.o. daily. 5. Lopressor 37.5 mg p.o. q.8 hours. 6. Sublingual nitroglycerin 0.4 mg p.r.n. for chest pain. 7. Effient 10 mg daily. 8. Protonix 40 mg 1 p.o. daily. LABORATORY DATA: Most recent labs, 12/12/16, white blood cell 11.9, hemoglobin 14.6, hematocrit 43, and platelets 169,000. On 12/14/16, sodium 135, potassium 3.9, chloride 105, BUN 15, creatinine 0.94. The patient's lipid profile; triglycerides 267, total cholesterol 182, LDL 84, HDL 44.4. Peak total CK 1590 with a peak MB of 283. Peak troponin is 23. BNP 11. Please refer to a full history and physical note as per Dr. Carolina from . Please refer to a full cardiac catheterization angioplasty report, Dr. Carolina, 12/08/16. Please refer to a full echo report on 12/09/16, read by Dr. Hernandez. Please refer to a limited echo report on 12/12/[address] Alvarenga. Please note all of the above. In summary, this is a 46-year-old male patient with a history of coronary artery disease who hospitalized on 12/08/16 with symptoms of chest pain. He ruled in for non-ST elevation myocardial infarction. His initial EKG reported to have ST elevations in 1 and aVL, but ST segment depression in V2, V3 and T wave inversions in inferior leads. He was taken to the cardiac earthmoving labourer by Dr. Carolina and he underwent a cardiac catheterization. Please refer to a full separate report and successfully underwent angioplasty and stenting of a complex LAD bifurcation lesion as described. During his hospitalization, the patient developed pericarditis. Initially, Brilinta was discontinued and he was started on aspirin 325 mg 3 times a day and Effient 10 mg daily. He was followed very closely in the intensive care unit and [facility] evaluation, which he is a candidate given his severely reduced left ventricular systolic function by original echo done on 12/09/16 and a followup limited echo done on 12/12/16, his EF was 25%. I did see him today. He was ambulating. He feels overall well. He reports no symptoms of chest pain. No orthopnea, no PND. He has no dizziness and no syncope. As of today, his vitals, blood pressure 117/87, oxygen saturation 94% on room air, heart rate 80, he is in sinus rhythm. On exam, normocephalic, atraumatic. Head, ear, nose, and throat essentially benign. Neck: Supple. JVP is not elevated. No carotid bruits. Chest is clear to auscultation. No rales, no wheeze. No added sounds. Heart: Normal, regular. S1 and S2. No added sounds , no gallops, no rubs. Abdomen: Benign., soft. Positive bowel sounds. Extremities: No edema, no cyanosis, no clubbing. Skin exam is normal. Psych: Normal affect and mood. [employer] SOLICITOR: No focal deficits appreciated. His labs as described above. His discharge medications, as listed above. Smoking, the patient had no history of smoking. His lipid profile, as stated above. The patient was counseled on aggressive lifestyle modification with low-salt, low- fat diet; attempts to lose weight; physical therapy as tolerated. He will be discharged home [facility]. All education and counseling was discussed at length with the patient. He is to follow up with Dr. Hernandez within 1 week of discharge. He is to avoid significant alcohol, caffeinated drinks and stimulants. I answered all of his concerns, questions up to his satisfaction as well as his who is available at bedside today. More than half of at least 35 plus minutes was in [id number] in the education and counseling mode, taking care of this patient's discharge summary, explaining all of the above to him, answering all his concerns and questions up to his satisfaction. [id number]/[facility] #: [id number] NETTA
== END 2016-12-14 15:50 | disposition home or self-care (01) | DRG 174 ==
LOC: ED 16:36 → ICU 19:40
PROVIDERS: ADMIT Internal Medicine Cardiovascular Disease; ATTEND Internal Medicine Cardiovascular Disease
PROC: 3E033PZ Introduction of Platelet Inhibitor into Peripheral Vein, Percutaneous Approach (ICD-10-PCS; 2016-12-08)
PROC: B2111ZZ Fluoroscopy of Multiple Coronary Arteries using Low Osmolar Contrast (ICD-10-PCS; 2016-12-08)
PROC: 4A023N7 Measurement of Cardiac Sampling and Pressure, Left Heart, Percutaneous Approach (ICD-10-PCS; 2016-12-08)
PROC: 02C03Z6 Extirpation of Matter from Coronary Artery, One Artery, Bifurcation, Percutaneous Approach (ICD-10-PCS; 2016-12-08)
PROC: 0271356 Dilation of Coronary Artery, Two Arteries, Bifurcation, with Two Drug-eluting Intraluminal Devices, Percutaneous Approach (ICD-10-PCS; principal; 2016-12-08 15:00)
DX: I21.4 Non-ST elevation (NSTEMI) myocardial infarction (principal); I31.9 Disease of pericardium, unspecified; R40.2412 Glasgow coma scale score 13-15, at arrival to emergency department; I25.10 Atherosclerotic heart disease of native coronary artery without angina pectoris; I08.3 Combined rheumatic disorders of mitral, aortic and tricuspid valves; R00.0 Tachycardia, unspecified; N18.9 Chronic kidney disease, unspecified; Z79.82 Long term (current) use of aspirin; I25.2 Old myocardial infarction; Z95.5 Presence of coronary angioplasty implant and graft; Z82.49 Family history of ischemic heart disease and other diseases of the circulatory system; Z72.89 Other problems related to lifestyle; Z79.02 Long term (current) use of antithrombotics/antiplatelets
CPT/HCPCS: 36415; 71010; 71275; 74174; 80048; 80053; 80061; 82550; 82553; 83036; 83605; 83735; 83880; 84484; 85025; 85379; 86140; 86141; 87040; 87641; 93005; 93306; 93308; 93458; 99156; 99157; A9270-GY; C1725; C1757; C1769; C1876; C1887; C9600-LD; J1170; J1327; J1644; J2060; J2270; J2405; J3010; Q9967